=== PATIENT | female | born 1985 | race Caucasian/White ===

== ENCOUNTER → 2022-06-09 10:44 | Outpatient (BNVA) | payer OTHER, SELFPAY | PROVIDERS: PCP Internal Medicine; Visit Provider Physician Assistant Medical | DX: M54.40 Lumbago with sciatica, unspecified side (principal) | CPT/HCPCS: 72110; 99203 ==

== ENCOUNTER → 2022-06-12 10:57 | Outpatient (BNVA) | payer OTHER, SELFPAY | PROVIDERS: PCP Internal Medicine; Visit Provider Physician Assistant | DX: M54.2 Cervicalgia (principal); M54.50 Low back pain, unspecified | CPT/HCPCS: 99213 ==